=== PATIENT | female | born 1935 | race Caucasian/White ===

== ENCOUNTER 2021-12-04 14:26 | Inpatient (IN) ==
[2021-12-04] MEDS: oxyCODONE/Acetamin 5/325 mg TAB PO ONE ×2 (14:51→14:56)
[2021-12-04] MEDS ORDERED: Morphine 2 MG/ML SYRINGE IV ONE (15:05)
[2021-12-04 15:40] LABS: ABS Basophils 0.1 10^3/ul (0-0.2); ABS Eosinophils 0.6 10^3/ul (0-0.6); ABS Lymphocytes 3.1 10^3/ul (1.0-4.8); ABS Monocytes 1.2 10^3/ul (0-0.8); ABS Neutrophils 13.4 10^3/ul (1.5-7.7); Eosinophil % 3.2 %; Hematocrit 38 % (35-47); Hemoglobin 12.8 g/dL (12.0-16.0); Lymphocyte % 16.7 %; Mean Corpuscular HGB Conc 34 g/dL (31-36); Mean Corpuscular Hemoglobin 31 pg (27-31); Mean Corpuscular Volume 93 fL (80-97); Mean Platelet Volume 7.5 fL (7.4-10.4); Platelet Count 317 10^3/uL (150-450); Red Blood Count 4.13 10^6 /uL (3.70-4.87); Red Cell Distribution Width 13 % (10-15); White Blood Count 18.4 10^3/uL (3.5-10.8)
[2021-12-04] MEDS ORDERED: fentaNYL 100 mcg/2 ml 50 MCG/ML VIAL IV SLOW PU ONE ×3 (15:50→18:24)
[2021-12-04 15:51] LABS: Activated Partial Thrombo Time 28.7 seconds (26.0-38.0); INR 1.13 (0.89-1.11)
[2021-12-04 16:24] LABS: Albumin 4.2 g/dL (3.2-5.2); Albumin/Globulin Ratio 1.4 (1-3); Calcium 9.6 mg/dL (8.6-10.3); Globulin 2.9 g/dL (2-4); Potassium 4.3 mmol/L (3.5-5.0); Total Protein 7.1 g/dL (6.4-8.9); eGFR CKD-EPI 71.3 (>60)
[2021-12-04] MEDS ORDERED: Iohexol 350 (CONTRAST) 500 ML MDV IV ONE (16:35)
[2021-12-04] MEDS ORDERED: Polyethylene Glycol 3350 17 GM PACKET PO PRN (20:37)
[2021-12-04] MEDS: Morphine 2 MG/ML SYRINGE IV PRN (23:20)
[2021-12-05 00:49] LABS: Urine Appearance Clear; Urine Bilirubin Negative (Negative); Urine Blood Negative (Negative); Urine Color Yellow; Urine Glucose Negative (Negative); Urine Ketones Trace (Negative); Urine Nitrite Negative (Negative); Urine Protein Negative (Negative); Urine Specific Gravity 1.025 (1.005-1.030); Urine Urobilinogen 0.2 (Negative) (Negative); Urine pH 5.5 (5.0-9.0)
[2021-12-05] MEDS: Morphine 2 MG/ML SYRINGE IV PRN ×4 (05:33→18:17)
[2021-12-05 05:44] LABS: ABS Lymphocytes 1.4 10^3/ul (1.0-4.8); ABS Monocytes 1.4 10^3/ul (0-0.8); ABS Neutrophils 11.5 10^3/ul (1.5-7.7); Hematocrit 36 % (35-47); Hemoglobin 12.3 g/dL (12.0-16.0); Mean Corpuscular HGB Conc 34 g/dL (31-36); Mean Corpuscular Hemoglobin 31 pg (27-31); Mean Corpuscular Volume 93 fL (80-97); Mean Platelet Volume 7.7 fL (7.4-10.4); Platelet Count 305 10^3/uL (150-450); Red Blood Count 3.91 10^6 /uL (3.70-4.87); Red Cell Distribution Width 13 % (10-15); White Blood Count 14.4 10^3/uL (3.5-10.8)
[2021-12-05 05:48] LABS: INR 1.25 (0.89-1.11)
[2021-12-05 06:01] LABS: Calcium 9.2 mg/dL (8.6-10.3); Potassium 4.1 mmol/L (3.5-5.0); eGFR CKD-EPI 83.9 (>60)
[2021-12-05] MEDS ORDERED: Lactated Ringers 1000 ml BAG 1,000 ML IV ONE (13:47)
[2021-12-06] MEDS: Morphine 2 MG/ML SYRINGE IV PRN ×2 (05:41→09:10)
[2021-12-06 06:09] LABS: Hematocrit 32 % (35-47); Hemoglobin 10.8 g/dL (12.0-16.0); Mean Corpuscular HGB Conc 34 g/dL (31-36); Mean Corpuscular Hemoglobin 31 pg (27-31); Mean Corpuscular Volume 93 fL (80-97); Platelet Count 264 10^3/uL (150-450); Red Blood Count 3.48 10^6 /uL (3.70-4.87); Red Cell Distribution Width 13 % (10-15); White Blood Count 13.4 10^3/uL (3.5-10.8)
[2021-12-06 06:33] LABS: eGFR CKD-EPI 87.9 (>60)
[2021-12-06] MEDS: Acetaminophen IV 1 GM/100ML 1,000 MG/100 ML BAG IV PRN (09:47)
[2021-12-06] MEDS ORDERED: Buffered Lidocaine 1% SYRIN 1 ml INTRADERM ONE (10:49)
[2021-12-06 11:40] LABS: INR 1.24 (0.89-1.11)
[2021-12-06] MEDS ORDERED: Bupivacaine 0.5% 50 ML MDV VIAL ONE (12:11)
[2021-12-06] MEDS ORDERED: ceFAZolin 2 GM in NS PREMIX 2 GM/100 ML BAG IVPB ONE (12:29)
[2021-12-06] MEDS ORDERED: fentaNYL 100 mcg/2 ml 50 MCG/ML VIAL IV PRN (12:53)
[2021-12-06] MEDS ORDERED: Ondansetron 4 mg VIAL 2 MG/ML 2 ml VIAL IV PRN (12:53)
[2021-12-06] MEDS ORDERED: Naloxone 0.4 mg VIAL 0.4 mg/ml 1 ml VIAL IV PRN (12:53)
[2021-12-06] MEDS ORDERED: fentaNYL 100 mcg/2 ml 50 MCG/ML VIAL ONE (13:22)
[2021-12-06] MEDS ORDERED: Lidocaine 2% PF 5 ML VIAL ONE (13:32)
[2021-12-06] MEDS ORDERED: Dexamethasone IV 4 MG/ML VIAL 1 ml VIAL ONE (13:32)
[2021-12-06] MEDS ORDERED: Propofol 10 MG/ML 20 ML BTL ONE (13:32)
[2021-12-06] MEDS ORDERED: Ondansetron 4 mg VIAL 2 MG/ML 2 ml VIAL ONE (13:32)
[2021-12-06 17:58] LABS: Hematocrit 29 % (35-47); Hemoglobin 9.9 g/dL (12.0-16.0)
[2021-12-06 18:30] LABS: Calcium 8.3 mg/dL (8.6-10.3); eGFR CKD-EPI 85.5 (>60)
[2021-12-06] MEDS: ceFAZolin 1 GM X 3 DOSES POST-OP Q8H (AddVan) IVPB SCH (20:17)
[2021-12-07] MEDS: ceFAZolin 1 GM X 3 DOSES POST-OP Q8H (AddVan) IVPB SCH ×2 (04:51→11:58)
[2021-12-07 06:49] LABS: Hematocrit 28 % (35-47); Hemoglobin 9.3 g/dL (12.0-16.0); Mean Corpuscular HGB Conc 34 g/dL (31-36); Mean Corpuscular Hemoglobin 31 pg (27-31); Mean Corpuscular Volume 93 fL (80-97); Mean Platelet Volume 8.2 fL (7.4-10.4); Platelet Count 253 10^3/uL (150-450); Red Blood Count 2.98 10^6 /uL (3.70-4.87); Red Cell Distribution Width 13 % (10-15); White Blood Count 18.3 10^3/uL (3.5-10.8)
[2021-12-07 07:17] LABS: Calcium 8.4 mg/dL (8.6-10.3); Potassium 3.7 mmol/L (3.5-5.0); eGFR CKD-EPI 85.8 (>60)
[2021-12-07] MEDS: Morphine 2 MG/ML SYRINGE IV PRN ×3 (08:17→18:58)
[2021-12-07 09:57] LABS: ABS Lymphocytes 1.5 10^3/ul (1.0-4.8); ABS Monocytes 2.2 10^3/ul (0-0.8); ABS Neutrophils 14.6 10^3/ul (1.5-7.7); Lymphocyte % 8.4 %
[2021-12-07] MEDS: Enoxaparin 30 MG/0.3 ML SYR SUBCUT SCH (11:54)
[2021-12-08] MEDS: Morphine 2 MG/ML SYRINGE IV PRN (02:00)
[2021-12-08 06:50] LABS: Mean Platelet Volume 8.2 fL (7.4-10.4); Platelet Count 308 10^3/uL (150-450)
[2021-12-08 08:32] LABS: Hematocrit 27 % (35-47); Hemoglobin 9.1 g/dL (12.0-16.0); Mean Corpuscular HGB Conc 33 g/dL (31-36); Mean Corpuscular Hemoglobin 31 pg (27-31); Mean Corpuscular Volume 94 fL (80-97); Red Blood Count 2.92 10^6 /uL (3.70-4.87); Red Cell Distribution Width 13 % (10-15); White Blood Count 18.3 10^3/uL (3.5-10.8)
[2021-12-08 08:35] LABS: Calcium 8.7 mg/dL (8.6-10.3); Potassium 3.9 mmol/L (3.5-5.0); eGFR CKD-EPI 87.5 (>60)
[2021-12-08 08:59] LABS: RBC Morphology Normal (Normal)
[2021-12-08 09:00] LABS: ABS Basophils 0.1 10^3/ul (0-0.2); ABS Eosinophils 0.1 10^3/ul (0-0.6); ABS Lymphocytes 2.4 10^3/ul (1.0-4.8); ABS Monocytes 2.1 10^3/ul (0-0.8); ABS Neutrophils 13.5 10^3/ul (1.5-7.7); Eosinophil % 0.6 %; Lymphocyte % 13.4 %; Nucleated Red Blood Cells % 0.1
[2021-12-08] MEDS ORDERED: Magnesium Hydroxide LIQ 30 ML UDC PO PRN (09:15)
[2021-12-08 11:10] LABS: Urine Bacteria Absent (Absent); Urine Red Blood Cell Trace(0-2/hpf) (Absent); Urine Squamous Epithelial Cell Present (Absent); Urine White Blood Cell Trace(0-5/hpf) (Absent)
[2021-12-08 11:13] LABS: Urine Appearance Clear; Urine Color Yellow
[2021-12-08 11:14] LABS: Urine Bilirubin Negative (Negative); Urine Blood Trace (Intact) (Negative); Urine Glucose Negative (Negative); Urine Ketones Negative (Negative); Urine Nitrite Negative (Negative); Urine Protein Trace (Negative); Urine Specific Gravity 1.025 (1.005-1.030); Urine Urobilinogen 0.2 (Negative) (Negative); Urine pH 5.5 (5.0-9.0)
[2021-12-08] MEDS: Enoxaparin 30 MG/0.3 ML SYR SUBCUT SCH (11:54)
[2021-12-08 15:42] LABS: Erythrocyte Sed Rate 64 mm/Hr (0-29)
[2021-12-08 18:06] LABS: Calcium 8.7 mg/dL (8.6-10.3); eGFR CKD-EPI 83.7 (>60)
[2021-12-08] MEDS: Senna TAB 8.6 mg TAB PO SCH (22:40)
[2021-12-09 05:44] LABS: Hematocrit 25 % (35-47); Hemoglobin 8.6 g/dL (12.0-16.0); Mean Corpuscular HGB Conc 34 g/dL (31-36); Mean Corpuscular Hemoglobin 32 pg (27-31); Mean Corpuscular Volume 93 fL (80-97); Mean Platelet Volume 7.7 fL (7.4-10.4); Platelet Count 332 10^3/uL (150-450); Red Blood Count 2.71 10^6 /uL (3.70-4.87); Red Cell Distribution Width 13 % (10-15); White Blood Count 15.8 10^3/uL (3.5-10.8)
[2021-12-09] MEDS: Lactated Ringers 1000 ml BAG 1,000 ML IV SCH ×3 (05:46→23:51)
[2021-12-09 05:52] LABS: ABS Basophils 0.1 10^3/ul (0-0.2); ABS Eosinophils 0.3 10^3/ul (0-0.6); ABS Lymphocytes 2.1 10^3/ul (1.0-4.8); ABS Monocytes 1.7 10^3/ul (0-0.8); ABS Neutrophils 11.6 10^3/ul (1.5-7.7); Eosinophil % 2.1 %; Lymphocyte % 13.1 %; Nucleated Red Blood Cells % 0.1
[2021-12-09] MEDS: Morphine 2 MG/ML SYRINGE IV PRN ×2 (05:54→09:40)
[2021-12-09] MEDS ORDERED: Lactated Ringers 1000 ml BAG 1,000 ML IV SCH (06:00)
[2021-12-09] MEDS ORDERED: Buffered Lidocaine 1% SYRIN 1 ml INTRADERM ONE (06:00)
[2021-12-09 06:03] LABS: Calcium 8.7 mg/dL (8.6-10.3); Potassium 3.9 mmol/L (3.5-5.0); eGFR CKD-EPI 86.1 (>60)
[2021-12-09] MEDS ORDERED: Dexmedetomidine 200 mcg/2 ml 2 ml VIAL (200 mcg) ONE (15:47)
[2021-12-09] MEDS ORDERED: ROPIVACAINE 5 MG/ML 30 ML BTL (0.5%) ONE ×2 (15:47→17:33)
[2021-12-09] MEDS ORDERED: fentaNYL 100 mcg/2 ml 50 MCG/ML VIAL ONE ×3 (15:47→17:33)
[2021-12-09] MEDS ORDERED: Lidocaine 2% PF 5 ML VIAL ONE ×2 (16:40→17:33)
[2021-12-09] MEDS ORDERED: Propofol 10 MG/ML 20 ML BTL ONE (16:40)
[2021-12-09] MEDS ORDERED: Phenylephrine IV 10 MG/ML 1 ml VIAL ONE (16:41)
[2021-12-09] MEDS ORDERED: Midazolam 2 mg/2 ml VIAL 1 mg/ml 2 ml VIAL (2 mg) ONE (17:33)
[2021-12-09] MEDS ORDERED: Sevoflurane BOTTLE ONE (18:02)
[2021-12-09] MEDS ORDERED: Rocuronium 50 mg VIAL 10 mg/ml 5 ml VIAL (50 mg) ONE (18:09)
[2021-12-09] MEDS ORDERED: ceFAZolin 2 GM PREMIX 2 GM/50 ML BAG ONE (18:16)
[2021-12-09] MEDS ORDERED: Vancomycin 1,000 MG VIAL ONE (18:17)
[2021-12-09] MEDS ORDERED: Dexamethasone IV 4 MG/ML VIAL 1 ml VIAL ONE (21:31)
[2021-12-09] MEDS ORDERED: Ondansetron 4 mg VIAL 2 MG/ML 2 ml VIAL ONE (21:31)
[2021-12-09] MEDS ORDERED: Naloxone 0.4 mg VIAL 0.4 mg/ml 1 ml VIAL IV PRN (22:12)
[2021-12-09] MEDS ORDERED: Ondansetron 4 mg VIAL 2 MG/ML 2 ml VIAL IV PRN (22:12)
[2021-12-09] MEDS ORDERED: fentaNYL 100 mcg/2 ml 50 MCG/ML VIAL IV PRN (22:12)
[2021-12-09 22:24] LABS: Hematocrit 23 % (35-47); Hemoglobin 7.4 g/dL (12.0-16.0)
[2021-12-10] MEDS: Morphine 2 MG/ML SYRINGE IV PRN ×5 (02:31→19:40)
[2021-12-10] MEDS: Acetaminophen IV 1 GM/100ML 1,000 MG/100 ML BAG IV PRN (02:53)
[2021-12-10] MEDS: Senna TAB 8.6 mg TAB PO SCH ×2 (02:57→22:22)
[2021-12-10] MEDS: ceFAZolin 1 GM X 3 DOSES POST-OP Q8H (AddVan) IVPB SCH ×3 (04:11→19:46)
[2021-12-10 05:08] LABS: Hematocrit 23 % (35-47); Hemoglobin 7.3 g/dL (12.0-16.0); Mean Corpuscular HGB Conc 32 g/dL (31-36); Mean Corpuscular Hemoglobin 30 pg (27-31); Mean Corpuscular Volume 94 fL (80-97); Mean Platelet Volume 7.6 fL (7.4-10.4); Platelet Count 313 10^3/uL (150-450); Red Blood Count 2.42 10^6 /uL (3.70-4.87); Red Cell Distribution Width 13 % (10-15)
[2021-12-10 05:46] LABS: Calcium 8.2 mg/dL (8.6-10.3); Magnesium 2.1 mg/dL (1.9-2.7); Potassium 4.4 mmol/L (3.5-5.0); eGFR CKD-EPI 87.2 (>60)
[2021-12-10 08:06] LABS: ABS Monocytes 1.3 10^3/ul (0-0.8); ABS Neutrophils 13.7 10^3/ul (1.5-7.7); Eosinophil % 0.1 %; Nucleated Red Blood Cells % 0.2
[2021-12-10] MEDS: Enoxaparin 30 MG/0.3 ML SYR SUBCUT SCH (09:18)
[2021-12-10] MEDS: D5W 1000 ml BAG 1,000 ML IV SCH ×2 (09:35→22:25)
[2021-12-10] MEDS: Acetaminophen IV 1 GM/100ML 1,000 MG/100 ML BAG IV SCH ×2 (10:58→18:53)
[2021-12-10 16:43] LABS: Calcium 8.1 mg/dL (8.6-10.3); Potassium 3.6 mmol/L (3.5-5.0); eGFR CKD-EPI 86.8 (>60)
[2021-12-11] MEDS: Acetaminophen IV 1 GM/100ML 1,000 MG/100 ML BAG IV SCH ×4 (01:35→21:12)
[2021-12-11] MEDS: Morphine 2 MG/ML SYRINGE IV PRN ×6 (04:11→21:19)
[2021-12-11 06:10] LABS: Hematocrit 23 % (35-47); Hemoglobin 7.3 g/dL (12.0-16.0)
[2021-12-11] MEDS ORDERED: Polyethylene Glycol 3350 17 GM PACKET PO ONE (14:05)
[2021-12-11] MEDS: Enoxaparin 30 MG/0.3 ML SYR SUBCUT SCH (14:06)
[2021-12-11] MEDS: Senna TAB 8.6 mg TAB PO SCH (17:15)
[2021-12-12] MEDS: Acetaminophen IV 1 GM/100ML 1,000 MG/100 ML BAG IV SCH ×4 (02:50→22:37)
[2021-12-12] MEDS: Morphine 2 MG/ML SYRINGE IV PRN ×4 (03:10→13:36)
[2021-12-12 05:42] LABS: Hematocrit 23 % (35-47); Hemoglobin 7.3 g/dL (12.0-16.0); Mean Corpuscular HGB Conc 32 g/dL (31-36); Mean Corpuscular Hemoglobin 30 pg (27-31); Mean Corpuscular Volume 94 fL (80-97); Mean Platelet Volume 7.6 fL (7.4-10.4); Platelet Count 387 10^3/uL (150-450); Red Blood Count 2.43 10^6 /uL (3.70-4.87); Red Cell Distribution Width 13 % (10-15); White Blood Count 14.9 10^3/uL (3.5-10.8)
[2021-12-12 05:58] LABS: Calcium 8.1 mg/dL (8.6-10.3); Potassium 3.8 mmol/L (3.5-5.0); eGFR CKD-EPI 91.2 (>60)
[2021-12-12] MEDS: Enoxaparin 30 MG/0.3 ML SYR SUBCUT SCH (09:12)
[2021-12-12 09:17] LABS: ABS Basophils 0.1 10^3/ul (0-0.2); ABS Eosinophils 1.4 10^3/ul (0-0.6); ABS Lymphocytes 2.4 10^3/ul (1.0-4.8); ABS Monocytes 1.4 10^3/ul (0-0.8); ABS Neutrophils 9.6 10^3/ul (1.5-7.7); Eosinophil % 9.7 %; Lymphocyte % 16.1 %; Nucleated Red Blood Cells % 0.1
[2021-12-12 09:19] LABS: RBC Morphology Normal (Normal)
[2021-12-12] MEDS: Lactated Ringers 1000 ml BAG 1,000 ML IV SCH (17:46)
[2021-12-12] MEDS: Morphine ORAL CONCENTRATE 5 MG/0.25 ML ORAL.SYRIN SL PRN ×2 (18:52→22:47)
[2021-12-12] MEDS: Senna TAB 8.6 mg TAB PO SCH (22:36)
[2021-12-13] MEDS: Morphine ORAL CONCENTRATE 5 MG/0.25 ML ORAL.SYRIN SL PRN ×4 (01:00→22:30)
[2021-12-13] MEDS: Acetaminophen IV 1 GM/100ML 1,000 MG/100 ML BAG IV SCH ×4 (03:07→22:40)
[2021-12-13] MEDS: Lactated Ringers 1000 ml BAG 1,000 ML IV SCH (05:08)
[2021-12-13 06:00] LABS: Hematocrit 23 % (35-47); Hemoglobin 7.3 g/dL (12.0-16.0); Mean Corpuscular HGB Conc 32 g/dL (31-36); Mean Corpuscular Hemoglobin 30 pg (27-31); Mean Corpuscular Volume 95 fL (80-97); Mean Platelet Volume 7.6 fL (7.4-10.4); Platelet Count 401 10^3/uL (150-450); Red Blood Count 2.44 10^6 /uL (3.70-4.87); Red Cell Distribution Width 14 % (10-15); White Blood Count 18.5 10^3/uL (3.5-10.8)
[2021-12-13 06:14] LABS: Potassium 3.6 mmol/L (3.5-5.0); eGFR CKD-EPI 92.1 (>60)
[2021-12-13 06:22] LABS: ABS Eosinophils 0.9 10^3/ul (0-0.6); ABS Lymphocytes 1.7 10^3/ul (1.0-4.8); ABS Monocytes 1.2 10^3/ul (0-0.8); ABS Neutrophils 14.6 10^3/ul (1.5-7.7); Lymphocyte % 9.1 %; Nucleated Red Blood Cells % 0.1
[2021-12-13] MEDS: Enoxaparin 30 MG/0.3 ML SYR SUBCUT SCH (09:20)
[2021-12-13] MEDS: Docusate LIQ 100 MG/10 ML UDC PO SCH ×2 (09:31→22:50)
[2021-12-13] MEDS: Senna TAB 8.6 mg TAB PO SCH (22:49)
[2021-12-14] MEDS: Acetaminophen IV 1 GM/100ML 1,000 MG/100 ML BAG IV SCH ×3 (03:07→18:19)
[2021-12-14] MEDS: Morphine ORAL CONCENTRATE 5 MG/0.25 ML ORAL.SYRIN SL PRN ×3 (05:27→19:37)
[2021-12-14 07:38] LABS: Hematocrit 24 % (35-47); Hemoglobin 7.6 g/dL (12.0-16.0); Mean Corpuscular HGB Conc 32 g/dL (31-36); Mean Corpuscular Hemoglobin 30 pg (27-31); Mean Corpuscular Volume 95 fL (80-97); Mean Platelet Volume 7.3 fL (7.4-10.4); Platelet Count 431 10^3/uL (150-450); Red Blood Count 2.49 10^6 /uL (3.70-4.87); Red Cell Distribution Width 14 % (10-15); White Blood Count 23.2 10^3/uL (3.5-10.8)
[2021-12-14 08:19] LABS: Calcium 7.9 mg/dL (8.6-10.3); Potassium 3.8 mmol/L (3.5-5.0); eGFR CKD-EPI 92.6 (>60)
[2021-12-14 09:10] LABS: ABS Basophils 0.1 10^3/ul (0-0.2); ABS Eosinophils 0.5 10^3/ul (0-0.6); ABS Lymphocytes 2.1 10^3/ul (1.0-4.8); ABS Monocytes 1.4 10^3/ul (0-0.8); ABS Neutrophils 19.1 10^3/ul (1.5-7.7); Eosinophil % 2.2 %; Lymphocyte % 9.1 %; Nucleated Red Blood Cells % 0.1
[2021-12-14] MEDS: Enoxaparin 30 MG/0.3 ML SYR SUBCUT SCH (12:20)
[2021-12-14] MEDS: Docusate LIQ 100 MG/10 ML UDC PO SCH (13:23)
[2021-12-14] MEDS ORDERED: Ondansetron ODT 4 mg TAB 4 MG TAB SL PRN (15:13)
[2021-12-14] MEDS: Senna TAB 8.6 mg TAB PO SCH (20:10)
[2021-12-15] MEDS: Acetaminophen IV 1 GM/100ML 1,000 MG/100 ML BAG IV SCH ×3 (00:22→11:56)
[2021-12-15] MEDS: Enoxaparin 30 MG/0.3 ML SYR SUBCUT SCH (09:28)
[2021-12-15] MEDS: Morphine ORAL CONCENTRATE 5 MG/0.25 ML ORAL.SYRIN SL PRN ×2 (10:07→22:23)
[2021-12-15] MEDS ORDERED: Lorazepam PYXIS KEY PRN (23:04)
[2021-12-15] MEDS: Senna TAB 8.6 mg TAB PO SCH (23:04)
[2021-12-15] MEDS ORDERED: LORazepam 2 mg VIAL 1 ml IV PUSH ONE (23:05)
[2021-12-16] MEDS: Enoxaparin 30 MG/0.3 ML SYR SUBCUT SCH (07:47)
[2021-12-16] MEDS: Morphine ORAL CONCENTRATE 5 MG/0.25 ML ORAL.SYRIN SL PRN ×3 (07:47→23:35)
[2021-12-17] MEDS: Morphine ORAL CONCENTRATE 5 MG/0.25 ML ORAL.SYRIN SL PRN ×4 (00:41→20:53)
[2021-12-18] MEDS: Morphine ORAL CONCENTRATE 5 MG/0.25 ML ORAL.SYRIN SL PRN ×2 (07:54→21:10)
[2021-12-18] MEDS: Senna TAB 8.6 mg TAB PO SCH (22:07)
[2021-12-18 22:29] VITALS: BP 137/65
[2021-12-19] MEDS: Morphine ORAL CONCENTRATE 5 MG/0.25 ML ORAL.SYRIN SL PRN ×6 (03:57→23:22)
[2021-12-19] MEDS: Morphine ORAL CONCENTRATE 5 MG/0.25 ML ORAL.SYRIN SL SCH (21:27)
[2021-12-20] MEDS: Morphine ORAL CONCENTRATE 5 MG/0.25 ML ORAL.SYRIN SL SCH ×6 (02:02→21:44)
[2021-12-20] MEDS: Nystatin TOP POWDER 15 GM BTL TOPICAL SCH ×2 (14:29→21:47)
[2021-12-20] MEDS ORDERED: Atropine 1% (ORAL/SL) 15 ML BTL SL PRN (17:10)
[2021-12-21] MEDS: Morphine ORAL CONCENTRATE 5 MG/0.25 ML ORAL.SYRIN SL SCH ×4 (01:28→13:37)
[2021-12-21] MEDS: Nystatin TOP POWDER 15 GM BTL TOPICAL SCH ×2 (09:05→13:43)
[2021-12-21] MEDS: Morphine ORAL CONCENTRATE 5 MG/0.25 ML ORAL.SYRIN SL PRN (11:03)
[2021-12-21] MEDS ORDERED: Atropine 1% (ORAL/SL) 15 ML BTL SL SCH (14:00)
[2021-12-21] MEDS ORDERED: Scopolamine 1 mg/72hr PATCH TRANSDERM SCH (14:00)
== END 2021-12-21 14:19 | disposition expired | DRG 521 ==
LOC: ED 14:26 → EDHOLD 19:51 → SUATTDRO 19:51 → SSU 22:32 → MED 12-18 21:25
PROVIDERS: ADMIT Hospitalist; ATTEND Internal Medicine